=== PATIENT | male | born 1995 | race Hispanic/Latino ===

== ENCOUNTER 2021-11-13 07:26 | Day surgery (SDC) | payer OTHER ==
[~2021-11-13] VITALS: Ht 182.9 cm; Wt 83.5 kg
[2021-11-13] MEDS ORDERED: KETOROLAC 60MG 2ML VIAL As Ordered ONE (07:33)
[2021-11-13] MEDS ORDERED: LIDOCAINE 2% 100MG/5ML SDV (FOR ANES.) As Ordered ONE (07:33)
[2021-11-13] MEDS ORDERED: ROCURONIUM BROMIDE 50 MG/5 ML VIAL As Ordered ONE (07:33)
[2021-11-13] MEDS ORDERED: dexameTHASONE 4 MG/ML 1ML VIAL (J1100 PER 1MG) As Ordered ONE (07:33)
[2021-11-13] MEDS ORDERED: METOCLOPRAMIDE INJ 10MG/2ML VIAL (J2765 PER 1) As Ordered ONE (07:33)
[2021-11-13] MEDS ORDERED: ONDANSETRON 4MG 2ML VIAL As Ordered ONE (07:33)
[2021-11-13] MEDS ORDERED: propofoL 200 MG/20 ML VIAL As Ordered ONE (07:33)
[2021-11-13] MEDS ORDERED: fentaNYL 100 MCG/2 ML INJECTION As Ordered ONE (07:34)
[2021-11-13] MEDS ORDERED: MIDAZOLAM INJ 2MG/2ML VIAL (J2250 PER 1MG) As Ordered ONE (07:34)
[2021-11-13] MEDS ORDERED: BUPIVACAINE/EPIN 0.5% 30 ML VIAL As Ordered ONE (08:37)
[2021-11-13] MEDS ORDERED: LIDOCAINE W/EPINEPHRINE 1% 20ML VIAL As Ordered ONE (08:37)
[2021-11-13] MEDS ORDERED: ACETAMINOPHEN 1000MG 100ML IV BTL (OFIRMEV) (J0131 PER 10MG) As Ordered ONE (09:15)
[2021-11-13] MEDS ORDERED: ONDANSETRON 4MG 2ML VIAL IV PRN (09:25)
[2021-11-13] MEDS ORDERED: oxyCODONE 5MG TAB PO PRN (09:25)
[2021-11-13] MEDS ORDERED: MORPHINE 2 MG/ML 1ML VIAL IV PRN (09:25)
[2021-11-13] MEDS ORDERED: fentaNYL 100 MCG/2 ML INJECTION IV PRN (09:25)
[2021-11-13] MEDS ORDERED: LR 1,000 ML IV SCH ×2 (09:25→10:00)
[2021-11-13] MEDS ORDERED: NORCO, ANEXSIA 5/325MG TABLET (HYDROcodone/ACETAMINOPHEN) PO PRN (10:00)
[2021-11-13 11:20] VITALS: BP 106/66
== END 2021-11-13 11:43 | disposition home or self-care (01) ==
LOC: M SDC 07:26
PROVIDERS: ATTEND Otolaryngology
DX: J35.01 Chronic tonsillitis (principal)
CPT/HCPCS: 42826; 88302; J0131; J1100; J1885; J2250; J2405; J2765; J3010